=== PATIENT | female | born 1960 | race Caucasian/White ===

== ENCOUNTER 2019-10-31 23:49 | Emergency (ER) | payer MEDICAID ==
[~2019-10-31] VITALS: Ht 162.6 cm; Wt 90.9 kg
[~2019-10-31 23:49] MED LIST: ALBU18HF2 IH; ASPI81TA47 PO; BECL8.7A7 IH; CLOP75TA33 PO; DIPH25CA52 PO; METO-539 PO
[2019-11-01] MEDS ORDERED: albuterol 2.5 MG/3 ML nebule NEB ONE (00:05)
[2019-11-01] MEDS ORDERED: normal saline 1000ML IV soln IVB ONE ×2 (00:05)
[2019-11-01] MEDS ORDERED: methylPREDNISolone sod succ 125mg/2ml vial IV ONE (00:05)
[2019-11-01] MEDS ORDERED: ipratropium/albuterol 3ml nebule NEB ONE (00:05)
[2019-11-01 01:12] LABS: CLARITY,URINE CLEAR (Clear); COLOR,URINE YELLOW (Yellow); GLUCOSE, URINE NEGATIVE (Neg); KETONES,URINE NEGATIVE (Neg); LEUKOCYTE ESTERASE ,URINE NEGATIVE (Neg); NITRITES, URINE NEGATIVE (Neg); OCCULT BLOOD,URINE NEGATIVE (Neg); PH,URINE 5.5 (4.8-8.0); PROTEIN,URINE NEGATIVE (Neg); UROBILINOGEN,URINE 0.2 E.U/dL (0.2-1.0)
[2019-11-01 01:17] LABS: UA COLLECTION TYPE VOIDED
[2019-11-01 01:20] LABS: BASOPHILS % (AUTO) 0.6 % (0-1); EOSINOPHILS # (AUTO) 0.1 X10'3 (0-0.9); EOSINOPHILS % (AUTO) 1.1 % (0-6); HEMATOCRIT 52.2 % (35.0-45.0); HEMOGLOBIN 17.5 g/dl (12.0-16.0); LYMPHOCYTES # (AUTO) 0.9 X10'3 (1.1-4.8); LYMPHOCYTES % (AUTO) 16.3 % (21-51); MEAN CORPUSCULAR HEMOGLOBIN 30.6 PG (27.0-31.0); MEAN CORPUSCULAR HGB CONC 33.5 g/dL (33.0-36.5); MEAN CORPUSCULAR VOLUME 91.5 FL (78-98); MEAN PLATELET VOLUME 7.6 FL (7.4-10.4); MONOCYTES # (AUTO) 0.4 X10'3 (0-0.9); MONOCYTES % (AUTO) 7.4 % (2-12); NEUTROPHILS # (AUTO) 4.3 X10'3 (1.8-7.7); NEUTROPHILS % (AUTO) 74.6 % (42-75); PLATELET COUNT 231 X10'3 (140-440); RED BLOOD COUNT 5.71 X10'6 (4.20-5.60); RED CELL DISTRIBUTION WIDTH 14.8 % (11.5-14.5); WHITE BLOOD COUNT 5.8 X10'3 (4.5-11.0)
[2019-11-01 01:28] LABS: ALANINE AMINOTRANSFERASE 22 U/L (12-78); ALBUMIN 3.3 G/DL (3.4-5.0); ALBUMIN/GLOBULIN RATIO 0.7 (1.1-1.5); ALKALINE PHOSPHATASE 101 IU/L (46-116); ANION GAP 4 (8-16); ASPARTATE AMINO TRANSFERASE 19 U/L (10-37); BILIRUBIN,TOTAL 0.2 MG/DL (0.1-1.0); BLOOD UREA NITROGEN 11 MG/DL (7-18); BUN/CREATININE RATIO 17.2 (6.6-38.0); CALCIUM 8.5 MG/DL (8.5-10.1); CHLORIDE 99 MMOL/L (99-107); CREATININE 0.64 MG/DL (0.40-0.90); GLUCOSE 165 MG/DL (70-104); POTASSIUM 4.1 MMOL/L (3.5-5.1); SODIUM 139 MMOL/L (135-145); TOTAL CARBON DIOXIDE 36.4 MMOL/L (24-32); TOTAL PROTEIN 7.8 G/DL (6.4-8.2); eGFR > 90 ML/MIN
[2019-11-01 01:33] LABS: PARTIAL THROMBOPLASTIN TIME 30 SECONDS (22-32)
[2019-11-01] MEDS ORDERED: PRED20TA PO (02:56)
[2019-11-01 03:41] VITALS: BP 115/64
== END 2019-11-01 03:20 | disposition home or self-care (01) ==
LOC: ER 23:49
DX: F10.920 Alcohol use, unspecified with intoxication, uncomplicated (principal); J44.1 Chronic obstructive pulmonary disease with (acute) exacerbation; I10 Essential (primary) hypertension; F12.90 Cannabis use, unspecified, uncomplicated; F17.200 Nicotine dependence, unspecified, uncomplicated; Z95.5 Presence of coronary angioplasty implant and graft; Z56.0 Unemployment, unspecified; Z79.82 Long term (current) use of aspirin; Z79.899 Other long term (current) drug therapy; Z99.81 Dependence on supplemental oxygen; Y90.9 Presence of alcohol in blood, level not specified
CPT/HCPCS: 36415; 71045; 80053; 80320; 81003; 83605; 83880; 84145; 84484; 85025; 85610; 85730; 87040; 93005; 94640; 96374; 99284; J2930; J7030; 94760